=== PATIENT | female | born 1980 | race Caucasian/White ===

== ENCOUNTER 2017-04-26 23:26 | Emergency (ER) | payer MEDICAID ==
[2017-04-26] MEDS ORDERED: NORMAL SALINE 1,000 ML IV ONE (23:41)
--- NOTE | 2017-04-26 23:45 | ERNOTE ---
ER Female HPI Date of Service: 04/26/17 Stated Complaint: uti Presenting Symptoms: dysuria Time Seen by Provider: 04/26/17 23:34 Source: patient Immunizations: IMMUNIZATION HX Immunizations Up to Date Yes History of Influenza Vaccine No Hx Pneumococcal Vaccination No Allergies/Adverse Reactions: Allergies hydrocodone Allergy (Verified 04/01/17 15:02) Penicillins Allergy (Verified 04/01/17 15:02) promethazine HCl [From Phenergan] Allergy (Verified 04/01/17 15:02) meperidine HCl [From Demerol] Adverse Reaction (Verified 04/01/17 15:02) Home Medications: HOME MEDICATIONS clonazePAM [Klonopin] 1 mg PO TID PRN 01/13/16 [Last Taken Unknown] ARIPiprazole [Abilify] 10 mg PO DAILY #30 tablet 05/03/16 [Last Taken Unknown] Escitalopram Oxalate [Lexapro] 10 mg PO DAILY #30 tab 05/03/16 [Last Taken Unknown] Ondansetron [Zofran Odt] 4 mg PO Q4H PRN #10 tab 05/24/16 [Last Taken Unknown] Rizatriptan Benzoate [Maxalt] 10 mg PO PRN 07/16/16 [Last Taken Unknown] oxyCODONE HCL [Oxycodone] 10 mg PO BID PRN 07/16/16 [Last Taken Unknown] Albuterol Sulfate [Ventolin HFA] 1 puff IH Q6H 04/01/17 [Last Taken Unknown] Cephalexin Monohydrate [Keflex] 500 mg PO QID #40 cap 04/01/17 [Last Taken Unknown] Flecainide Acetate 50 mg PO BID PRN 04/01/17 [Last Taken Unknown] Ledipasvir/Sofosbuvir [Harvoni 90-400 mg Tablet] 1 each PO DAILY 04/01/17 [Last Taken Unknown] Megestrol Acetate [Megace Suspension] 40 mg PO DAILY 04/01/17 [Last Taken Unknown] Oxymorphone HCl [Opana ER] 30 mg PO DAILY 04/01/17 [Last Taken Unknown] Oxymorphone HCl [Oxymorphone HCl ER] 30 mg PO BID 04/01/17 [Last Taken Unknown] - History of Present Illness Narrative: This is a 37-year-old female who has a history of hepatitis C. She is on week 18 of [facility]. The patient states that she was treated for a bladder infection on the end of last month. She says she was given a single dose of a single medicine. She was having dysuria frequency urgency and right lower back pain. She says the symptoms have continued. They have not gotten any better. She says that she has an extremely foul-smelling urine. Patient denies any other complaints. Timing: Present: constant Quality: Present: moderate Onset Location: Present: urethral Radiation: Present: none Activities at Onset: Present: none Prior Abdominal Problems: Present: similar symptoms Sexual [place] History: Present: single partner Modifying Factors - (Improves): Present: other - nothing Modifying Factors - (Worsens): Present: other - nothing Associated Symptoms: Present: other - mild right lumbar pain Prior Treatment: Present: recently seen, other - claims to have been given one dose of antibiotics Review of Systems - Review of Systems Constitutional: Present: no symptoms reported, See HPI EYE: Present: no symptoms reported ENT: Present: no symptoms reported Respiratory: Present: no symptoms reported Cardiology: Present: no symptoms reported Gastrointestinal/Abdominal: Present: See HPI. Absent: nausea, vomiting, diarrhea, abdominal pain Genitourinary: Present: See HPI, frequency, pain, dysuria Musculoskeletal: Present: no symptoms reported, other - low back pain Skin: Present: no symptoms reported Neurological: Present: no symptoms reported Endocrine: Present: no symptoms reported Hematologic/Lymphatic: Present: no symptoms reported Psych: Present: no symptoms reported - Patient's Past Medical History Patient History - Medical: Anxiety, Bipolar, Depression, GERD, Migraines Patient History - Cardiac/Respiratory: Pericarditis Patient History - Cancer: No Hx of Cancer Patient History - Surgical Procedures: Appendectomy, Tubal Ligation, Other Patient History - Other: None LMP (Calendar): 04/10/16 - Family History Mother Family History - Medical: Hypothyroidism Father Family History - Medical: , History Unknown - Social History Living Situations: home Abuse History: No History of abuse Psych History: Hx of Anxiety, Hx of Depression, Hx of Bipolar Disorder Smoking Status: Current every day smoker Alcohol Use: none Drug Use: none - Immunizations Immunizations Up to Date: Yes Hx Pneumococcal Vaccination: No History of Influenza Vaccine: No Physical Exam - Physical Exam General Appearance: Present: wd/wn, alert, no apparent distress Head Exam: Present: normal inspection, no evidence of injury Eye Exam: Normal inspection: bilateral, PERRL: bilateral, EOMI: bilateral Ears, Nose, Throat: Present: normal ENT inspection Neck: Present: normal inspection, nontender Respiratory: Present: no respiratory distress, normal breath sounds, no accessory muscle use, chest nontender, lungs clear Cardiovascular/Chest: Present: regular rate, rhythm, no murmur, normal peripheral pulses Gastrointestinal/Abdominal: Present: normal bowel sounds, nontender, nondistended, soft, no organomegaly Back Exam: Present: CVA tenderness (R). Absent: CVA tenderness (L), vertebral tenderness, decreased range of motion, muscle spasm Extremity Exam: Present: normal inspection, non-tender, no edema Neurological Exam: Present: alert, oriented Skin Exam: Present: normal color, warm/dry Lymphatic Exam: Present: no adenopathy ED Progress - Results and Orders Patient's Lab Results:: I have reviewed the patient's lab results. - Vital Signs Patient's Vital Signs:: I have reviewed the patient's vital signs. Vital Signs: Vital Signs 04/26/17 23:37 Temperature 37.1 C Pulse Rate 112 H Respiratory 18 Rate Blood Pressure 114/83 O2 Sat by Pulse 99 Oximetry - Progress/Reassessment Chief Complaint: Genitourinary Problem Plan - Plan Plan: The plan is to obtain baseline labs on this patient. She is immunosuppressed with the Harvoni. I am uncertain what antibiotic she was given that would be just one dose. I suspect that the patient is actually an error here. We'll check basic metabolic panel, liver function tests, CBC, , and urinalysis. I will have nursing print the old report with the sensitivity from the urinary tract infection. She will likely need 10-14 days of outpatient antibiotics. She certainly does not look toxic or severely ill. She is not vomiting. I do not believe that prolonged IV treatment over many days would be appropriate. I have discussed with the patient that I see nothing significantly abnormal on her labs. There is certainly no indication to expose her to radiation and obtain a CAT scan of her abdomen. She does not have an elevated white blood cell count. Urine is clear. The patient gave me a rather long description of being kicked out of her doctor's service recently. She says that her urine came back with amphetamines which were from cough or cold medicine. She says that her doctor subsequently took her off of high dose long acting opiates as well as benzodiazepines. I have expressed my sad feelings that her doctor will not prescribe these medicines but explained that there is no indication for them here in the ER. I do not believe that coming off of these medicines would cause the patient's symptoms The patient is aware she needs to follow-up with someone. Her primary care doctor is responsible for her legally for the next 30 days after she was discharged from the practice. I related that her family doctor is not required to treat her with medicines. The nursing staff. Peak with the patient about finding a family doctor. Departure Clinical Impression: Dysuria - Departure Disposition: Home self-care Condition: Stable Additional Instructions: As we discussed, I do not see anything abnormal which might indicate the cause of her symptoms. I don't a brief search of the Internet and do not see any signs that james can cause these types of symptoms. White blood cell count is normal as is her urinalysis. This would tend to indicate that there is not an infection which needs to be treated. I have no indication to perform CAT scans. He need to work on getting a family doctor. There are multiple nonemergency causes of symptoms such as shortness which we are not equipped to detect here in the emergency department. I would suggest that you call your family doctor, even though you believe she is discharged to from her practice, and asked for referrals. Certainly if he develop new or worrisome symptoms such as fever, blood in urine , significant vaginal discharge, or anything else concerning you need to return to the ER.
[2017-04-26 23:57] LABS: Hematocrit 41.9 % (37.0-47.0); Hemoglobin 13.8 gm/dL (12.5-16.0); Mean Cell Volume 81.5 fl (78-100); Mean Corpuscular Hemoglobin 26.8 pg (27-31); Mean Corpuscular Hgb Conc 32.9 g/dl (32-36); Mean Platelet Volume 8.8 fl (6.0-9.5); Neutrophil # 4.5 K/mm3 (1.3-6.0); Neutrophil % 51.4 % (42-75.0); Platelet Count 310 K/mm3 (150-450); Red Blood Count 5.14 M/mm3 (4.2-5.4); Red Cell Distribution Width 13.8 % (11.5-14.0); White Blood Count 8.7 K/mm3 (4.0-10.5)
[2017-04-27 00:09] LABS: Albumin * 3.7 gm/dl (3.4-5.0); Anion Gap 13.8 mmol/L (6.8-13.8); Bilirubin, Total 0.2 mg/dL (0.0-1.1); Ca. Corrected For Albumin 8.1 mg/dL (8.4-10.2); Calcium * 8.2 mg/dL (7.9-10.9); Carbon Dioxide 26.8 mmol/L (24-32.6); Potassium 3.6 mmol/L (3.4-4.6); Total Protein 7.8 gm/dL (6.2-8.2)
[2017-04-27 00:21] LABS: Urine Bilirubin Negative (NEGATIVE); Urine Blood Negative /ul (NEGATIVE); Urine Ketone Negative (NEGATIVE); Urine Nitrite Negative (NEGATIVE); Urine Protein Negative (NEGATIVE); Urine Specific Gravity >=1.030 SP.GR. (1.005-1.010); Urine Urobilinogen Normal (NORMAL)
[2017-04-27 00:30] LABS: Urine Amorphous Sediment Few - 1+ (NONE-FEW); Urine Appearance Clear; Urine Bacteria None Seen; Urine Color Yellow; Urine Mucus Moderate - 2+; Urine RBC 0-5 /hpf (0-5); Urine WBC 0-5 /hpf (0-5)
[2017-04-27 00:55] VITALS: BP 107/63
== END 2017-04-27 01:12 | disposition home or self-care (01) ==
LOC: ER 23:26
DX: R30.0 Dysuria (principal); F17.200 Nicotine dependence, unspecified, uncomplicated